=== PATIENT | male | born 1990 | race American Indian/Alaskan Native ===

== ENCOUNTER 2019-11-09 14:13 | Emergency (ER) | payer OTHER, SELFPAY ==
[2019-11-09 14:23] VITALS: BP 144/92; PULSE 88; RESP 16; TEMP 37.1; O2SAT 98; BMI 24.1
--- NOTE | 2019-11-09 14:45 | ED.ABDPAIN ---
HPI - Abdominal Pain General Chief Complaint: Abdominal Pain Stated Complaint: Vomiting and diarrhea for 3 days Time Seen by Provider: 11/09/19 14:35 Source: patient Mode of arrival: Ambulatory Limitations: no limitations History of Present Illness HPI narrative: The patient presents with abdominal cramping with vomiting and diarrhea for 2 days. The cramping is the upper mid abdomen, the pain does not radiate. His last meal before onset of symptoms was a carry out teriyaki dish. He has no fever. He has a mild headache as well as diaphoresis. His no visual changes, or confusion. His no chest discomfort or dyspnea. He has no chronic abdominal problems. He has no urinary symptoms. He has been around no one with similar symptoms. He is also not aware of anyone who has required several complaints after eating at that restaurant. He has no chronic medical problems, he is on no chronic medications. He smokes a little marijuana. He does not usually use tobacco or drugs. He uses occasional alcohol, mostly use on the weekends. Related Data Previous Rx's Medication Instructions Recorded ondansetron 4 mg PO Q4H PRN #14 tab 11/09/19 Allergies Allergy/AdvReac Type Severity Reaction Status Date / Time Sulfa (Sulfonamide Allergy Mild Verified 11/09/19 14:47 Antibiotics) Review of Systems Review of Systems ROS Unobtainable: All systems reviewed & are unremarkable except as noted in HPI and below Constitutional Constitutional: Denies chills, Denies fever(s), Denies lethargy and Denies weakness Comments: He does have diaphoresis Eyes Eyes: Denies blurry vision and Denies change in vision ENT Comments: No ENT complaints Cardiovascular Cardiovascular: Denies chest pain, Denies irregular heart rhythm, Denies lightheadedness, Denies palpitations and Denies dyspnea Respiratory Respiratory: Denies cough, Denies dyspnea and Denies wheezing Gastrointestinal Gastrointestinal: Reports as per HPI Genitourinary Genitourinary: Denies dysuria, Denies scrotal swelling and Denies testicular pain Genitourinary: Denies dysuria Musculoskeletal Comments: No musculoskeletal complaints. Integumentary/Breasts Skin/Breast: Denies pruritus, Denies erythema, Denies rash and Denies wounds Neurologic Neurologic: Denies confusion, Denies localized weakness and Denies weakness Psychiatric Psychiatric: Denies confusion and Denies irritability Endocrine Endocrine: Denies palpitations Allergic/Immunologic Allergic/Immunologic: Denies wheezing Patient History Social History Smoking Status: Never smoker Smoking Status: Never smoker alcohol intake frequency: a few times a week Substance Use Type: does not use Exam Initial Vital Signs Initial Vital Signs: Vital Signs Temperature 98.8 F 11/09/19 14:23 Pulse Rate 88 11/09/19 14:23 Respiratory Rate 16 11/09/19 14:23 Blood Pressure 144/92 H 11/09/19 14:23 Pulse Oximetry 98 11/09/19 14:23 Const General: cooperative and well developed Nutritional Appearance: well nourished [facility] Face and sinus: normal facial exam Mouth: oral mucosae normal Teeth and gingiva: dentition normal Eyes General: appearance normal, both eyes and all related structures Eyelids: eyelids normal Conjunctivae: conjunctivae normal Sclera: sclerae normal Pupils: PERRL EOM: EOM intact bilaterally Neck Neck: normal visual inspection Resp Effort & Inspection: normal respiratory effort and able to speak in complete sentences Auscultation: clear to auscultation bilaterally, no rales, no rhonchi and no wheezes Cardio Rate: regular rate Rhythm: regular rhythm Heart Sounds: S1 normal, S2 normal, no click, no gallops, no murmurs and no rubs Pulses: normal peripheral pulses GI Inspection: non-distended Palpation: soft, no hepatosplenomegaly, No guarding and No tender Auscultation: normal bowel sounds Back/Spine/Pelvis Back: No CVA tenderness Skin General: no rashes or lesions noted, No jaundice and No petechiae Neuro General: patient alert, patient oriented x3, gait normal and no focal motor deficits Speech: speech normal Extrem General: full ROM, no clubbing, cyanosis or edema, no pedal edema and no calf tenderness Psych Appearance: well kempt Mental Status: mental status grossly normal Course Course Course Narrative: The patient has improved significantly with the IV fluids, Zofran and Toradol. He will be discharged on Zofran. He will be diagnosed with food poisoning, given his relationship to the recent meal. Orders Ordered: ED Orders 11/09/19 14:27 EKG-12 Lead Stat 11/09/19 14:46 Complete Blood Count AUTO DIFF Stat Comprehensive Metabolic Panel Stat Lipase Stat Partial Thromboplastin Time Stat Prothrombin Time INR Stat Discontinued Medications Sodium Chloride (Normal Saline 0.9%) 1,000 mls @ 1,000 mls/hr IV BOLUS ONE Stop: 11/09/19 15:43 Last Infusion: 11/09/19 16:12 Dose: 0 mls/hr Documented by: Admin: 11/09/19 14:55 Dose: 1,000 mls/hr Documented by: TEOFILO Ketorolac Tromethamine (Toradol) 30 mg IV NOW ONE Stop: 11/09/19 14:45 Last Admin: 11/09/19 14:55 Dose: 30 mg Documented by: TEOFILO Ondansetron HCl (Zofran) 4 mg IV NOW ONE Stop: 11/09/19 14:45 Last Admin: 11/09/19 14:55 Dose: 4 mg Documented by: TEOFILO Vital Signs Vital signs: Vital Signs - 8 hr 11/09/19 14:23 11/09/19 15:39 11/09/19 16:17 Temperature 98.8 F Pulse Rate 88 82 64 Respiratory Rate 16 16 18 Blood Pressure 144/92 H 124/78 Pulse Oximetry 98 98 97 11/09/19 16:30 11/09/19 17:00 11/09/19 17:30 Temperature Pulse Rate 71 66 69 Respiratory Rate 19 21 18 Blood Pressure 119/77 115/82 112/78 Pulse Oximetry 98 97 98 MDM - Abdominal Pain Lab Data Result diagrams: 11/09/19 14:46 11/09/19 14:46 Labs: Lab Results 11/09/19 11/09/19 11/09/19 Range/Units 14:46 14:46 14:46 WBC 8.1 (4.5-11.0) X10^3/uL RBC 5.49 (4.5-5.9) X10^6/uL Hgb 16.2 (13.5-17.5) g/dL Hct 45.4 (41-53) % MCV 82.6 (80-100) fL MCH 29.6 (26-34) PG MCHC 35.8 (30-36) % RDW 13.7 (11.6-14.8) % Plt Count 209 (150-400) X10^3/uL Neut % (Auto) 83.7 H (50-75) % Lymph % (Auto) 8.1 L (25-40) % [place] % (Auto) 7.3 (3-14) % Eos % (Auto) 0.3 L (2-4) % Baso % (Auto) 0.6 (0-2) % Neut # (Auto) 6800 (4853-5212) /uL Lymph # (Auto) 700 L (9002-8866) /uL [place] # (Auto) 600 (0-900) /uL Eos # (Auto) 0 (0-450) /uL Baso # (Auto) 100 (0-100) /uL PT 11.8 (10.1-12.7) SECONDS INR 1.0 (0.9-1.3) APTT 34 (26.4-36.2) SECONDS Sodium 133 L (137-145) mmol/L Potassium 3.6 (3.4-5.1) mmol/L Chloride 96 L (98-107) mmol/L Carbon Dioxide 25 (22-32) mmol/L BUN 9 (9-20) mg/dL Creatinine 0.81 (0.66-1.25) mg/dL Estimated GFR > 60.0 (>60) mL/min BUN/Creatinine Ratio 11.1 (6-22) Glucose 107 H (70-100) mg/dL Calcium 9.8 (8.4-10.2) mg/dL Total Bilirubin 0.7 (0.2-1.3) mg/dL AST 31 (17-59) IU/L ALT 31 (<50) IU/L Alkaline Phosphatase 71 (38-126) U/L Total Protein 8.3 H (6.3-8.2) g/dL Albumin 4.9 (3.5-5.0) g/dL Globulin 3.4 (1.7-4.1) g/dL Albumin/Globulin Ratio 1.4 (1.0-2.8) Lipase 58 (23-300) U/L ECG Data Attestation: I personally reviewed and interpreted this ECG as follows: (Normal sinus rhythm rate 84 beats per minute. Normal intervals. No ectopy. No acute ST T wave changes. Normal study.) Discharge Plan Departure Patient Disposition: Home Clinical Impression: Food poisoning Instructions: DI for Food Poisoning Activity Restrictions/Additional Instructions: Drink plenty of fluids, remain well hydrated. Advance your diet as tolerated. Zofran every 4 hours as needed for nausea. Tylenol as needed for pain. Return to the ER if symptoms escalate. Prescriptions: New ondansetron 4 mg tablet,disintegrating 4 mg PO Q4H PRN (Reason: nausea and vomiting) Qty: 14 RF: 0 Stand Alone Forms: School Release Note
[2019-11-09 14:54] LABS: Add Manual Diff / Slide Review NO; Basophils Absolute Auto 100 /uL (0-100); Basophils Percent Auto 0.6 % (0-2); Eosinophils Absolute Auto 0 /uL (0-450); Eosinophils Percent Auto 0.3 % (2-4); Hematocrit 45.4 % (41-53); Hemoglobin 16.2 g/dL (13.5-17.5); Lymphocytes Absolute Auto 700 /uL (1100-4500); Lymphocytes Percent Auto 8.1 % (25-40); Mean Corpuscular HGB Conc 35.8 % (30-36); Mean Corpuscular Hemoglobin 29.6 PG (26-34); Mean Corpuscular Volume 82.6 fL (80-100); Monocytes Absolute Auto 600 /uL (0-900); Monocytes Percent Auto 7.3 % (3-14); Neutrophils Absolute Auto 6800 /uL (1500-7000); Neutrophils Percent Auto 83.7 % (50-75); Platelet Count 209 X10^3/uL (150-400); Red Blood Cell Count 5.49 X10^6/uL (4.5-5.9); Red Cell Distribution Width 13.7 % (11.6-14.8); White Blood Cell Count 8.1 X10^3/uL (4.5-11.0)
[2019-11-09] MEDS: SODIUM CHLORIDE 0.9% 1,000 ML 1000 ML IV (14:55)
[2019-11-09] MEDS: KETOROLAC 60 MG/2 ML VIAL 30 MG IV (14:55)
[2019-11-09] MEDS: ONDANSETRON 4 MG/2 ML INJ IV (14:55)
[2019-11-09 15:01] LABS: Prothrombin Time 11.8 SECONDS (10.1-12.7)
[2019-11-09 15:04] LABS: PTT Partial Thromboplastin Tim 34 SECONDS (26.4-36.2)
[2019-11-09 15:05] LABS: Alanine Aminotransferase 31 IU/L (<50); Albumin 4.9 g/dL (3.5-5.0); Albumin Globulin Ratio 1.4 (1.0-2.8); Alkaline Phosphatase 71 U/L (38-126); Aspartate Aminotransferase 31 IU/L (17-59); BUN Creatinine Ratio 11.1 (6-22); Bilirubin Total 0.7 mg/dL (0.2-1.3); Blood Urea Nitrogen 9 mg/dL (9-20); Calcium 9.8 mg/dL (8.4-10.2); Carbon Dioxide 25 mmol/L (22-32); Chloride 96 mmol/L (98-107); Estimated Glomerular Filt Rate > 60.0 mL/min (>60); Globulin 3.4 g/dL (1.7-4.1); Glucose 107 mg/dL (70-100); HEMOLYSIS < 15 (0-50); Lipase 58 U/L (23-300); Potassium 3.6 mmol/L (3.4-5.1); Sodium 133 mmol/L (137-145); Total Protein 8.3 g/dL (6.3-8.2)
[2019-11-09 15:39] VITALS: BP 124/78; PULSE 82; RESP 16; O2SAT 98
[2019-11-09 16:17] VITALS: PULSE 64; RESP 18; O2SAT 97
[2019-11-09 16:30] VITALS: BP 119/77; PULSE 71; RESP 19; O2SAT 98
[2019-11-09 17:00] VITALS: BP 115/82; PULSE 66; RESP 21; O2SAT 97
[2019-11-09 17:30] VITALS: BP 112/78; PULSE 69; RESP 18; O2SAT 98
== END 2019-11-09 18:20 | disposition home or self-care (01) ==
PROVIDERS: Emergency Provider Emergency Medicine
DX: A05.9 Bacterial foodborne intoxication, unspecified (principal); R11.10 Vomiting, unspecified; R19.7 Diarrhea, unspecified; R51 Headache; R61 Generalized hyperhidrosis
CPT/HCPCS: 36415; 80053; 83690; 85025; 85610; 85730; 93005; 96361; 96374; 96375; 99284; J1885; J2405